=== PATIENT | female | born 1960 | race Caucasian/White ===

== ENCOUNTER 2017-09-14 13:07 | Day surgery (SDC) | payer BC ==
[2017-09-14] MEDS ORDERED: LIDOCAINE HCL 1% 20 ML VIAL ONE (13:26)
[2017-09-14 14:00] VITALS: BP 123/78; PULSE 71; RESP 20; TEMP 98.3; O2SAT 98
[2017-09-14 14:15] VITALS: BP 124/79; PULSE 73; RESP 20; O2SAT 99
--- NOTE | 2017-09-14 14:24 | RADRPT ---
EXAM DATE/TIME: 09/14/2017 13:24 [place] COMPARISON: No previous studies available for comparison. EXTERNAL COMPARISON: Radiology [facility], Ultrasound Thyroid, Aug 28 2017. INDICATIONS : Left thyroid nodule. MEDICAL HISTORY : Hypertension. SURGICAL HISTORY : Tubal ligation. Breast surgery. ENCOUNTER: Initial ACUITY: 3 weeks PAIN SCORE: 0/10 LOCATION: Left neck ORGAN: Left thyroid lobe SPECIMENS: Three fine needle aspirate(s) submitted for pathologic evaluation. DEVICE: 25 gauge needle Post procedure scanning reveals no hematoma or other complication. The possibility does exist that the tissue obtained will be non-diagnostic. If the sample is non-jaclyn gnostic a repeat biopsy or surgical biopsy may need to be performed. TECHNIQUE: 1. Ultrasound guidance for needle biopsy. 2. Needle biopsy. The risks, benefits and alternatives to the procedure were explained and verbal and written consent w as obtained. The site was prepped in sterile fashion. Full sterile technique was used, including ca p, mask, sterile gloves and gown and a large sterile sheet. Hand hygiene and 2% chlorhexidine and/or betadine/alcohol prep was utilized per protocol for cutaneous antisepsis. The skin and subcutaneous tissues were infiltrated with local anesthetic solution. Sterile gel and sterile probe cover were u tilized for ultrasound guidance. With the patient on the ultrasound table, images were obtained. A needle was advanced into the identified target and the number of specimens as above obtained and fontanez bmitted for pathologic evaluation. The patient tolerated the procedure well and left the ultrasound suite in stable condition. CONCLUSION: Uncomplicated ultrasound guided needle biopsy. Nilson Martin MD on September 14, 2017 at 14:21 Board Certified Radiologist. This report was verified electronically.
== END 2017-09-14 14:44 | disposition home or self-care (01) ==
LOC: HRAD 13:07 → HRIP 13:11 → HRAD 14:44
PROVIDERS: ATTEND Surgery Trauma Surgery
DX: E04.1 Nontoxic single thyroid nodule (principal); I10 Essential (primary) hypertension
CPT/HCPCS: 10022; 76942; 88172; 88173

== ENCOUNTER 2018-03-06 21:16 | Inpatient (IN) ==
[2018-03-06] MEDS ORDERED: ceFAZolin 2 GM Premix Inj 2 GM/50 ML PIGGYBACK IV.SIG ONE (22:18)
[2018-03-06] MEDS ORDERED: Diphtheria/Tetanus/Pertussis Vaccine Inj 0.5 ML Syringe IM ONE (22:19)
[2018-03-06 22:43] LABS: Baso # (Auto) 0.1 th/mm3 (0.0-0.2); Baso % (Auto) 0.5 % (0.0-2.0); Eos # (Auto) 0.2 th/mm3 (0.0-0.4); Eos % (Auto) 1.7 % (0.0-4.0); Hematocrit 39.7 % (35.0-46.0); Hemoglobin 13.3 gm/dL (11.6-15.3); Lymph # (Auto) 2.2 th/mm3 (1.0-4.8); Lymph % (Auto) 15.1 % (9.0-44.0); Mean Corpuscular HGB Conc 33.6 % (32.0-36.0); Mean Corpuscular Hemoglobin 29.3 pg (27.0-34.0); Mean Corpuscular Volume 87.2 fL (80.0-100.0); Mean Platelet Volume 10.3 fL (7.0-11.0); Mono # (Auto) 0.7 th/mm3 (0.0-0.9); Mono % (Auto) 4.8 % (0.0-8.0); Neut # (Auto) 11.5 th/mm3 (1.8-7.7); Neut % (Auto) 77.9 % (16.0-70.0); Platelet Count 203 th/mm3 (150-450); Red Blood Count 4.55 mil/mm3 (4.00-5.30); Red Cell Distribution Width 12.8 % (11.6-17.2); White Blood Count 14.8 th/mm3 (4.0-11.0)
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
[2018-03-06 22:53] LABS: Albumin 3.6 g/dL (3.4-5.0); Anion Gap 8 meq/L (5-15); Aspartate Aminotransferase 28 U/L (15-37); Blood Urea Nitrogen 13 mg/dL (7-18); Calcium 8.4 mg/dL (8.5-10.1); Carbon Dioxide 26.6 meq/L (21.0-32.0); Chloride 107 meq/L (98-107); Glomerular Filtration Rate 75 mL/min (>89); Glucose,Random 79 mg/dL (74-106); Potassium 3.2 meq/L (3.5-5.1); Sodium 142 meq/L (136-145)
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
[2018-03-06 22:54] LABS: Alanine Aminotransferase 29 U/L (10-53)
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
[2018-03-06 22:56] LABS: Alkaline Phosphatase 53 U/L (45-117); Total Protein 7.4 g/dL (6.4-8.2)
[2018-03-06] MEDS ORDERED: Morphine Inj 4 MG/ML Vial IV.PUSH ONE (23:06)
[2018-03-06] MEDS ORDERED: Temazepam 15 MG Capsule PO PRN (23:20)
[2018-03-06] MEDS ORDERED: Bisacodyl 10 MG Supp RECTAL PRN (23:20)
[2018-03-06] MEDS ORDERED: Sod Chloride 0.9% Inj 1,000 ML IV.CONT SCH (23:30)
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
[2018-03-06] MEDS ORDERED: Morphine Inj 4 MG/ML Vial IV.PUSH PRN (23:45)
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
[2018-03-07] MEDS ORDERED: Morphine Inj 4 MG/ML Vial IV.PUSH ONE (00:24)
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
[2018-03-07] MEDS ORDERED: Chlorhexidine Gluconate 2% 1 Pack (2 Cloths) TOPICAL SCH (04:15)
[2018-03-07] MEDS ORDERED: Sodium Chlor 0.9% Inj 500 ML IV.SIG SCH (05:00)
[2018-03-07 06:49] LABS: Baso % (Auto) 0.4 % (0.0-2.0); Eos % (Auto) 0.3 % (0.0-4.0); Hematocrit 37.2 % (35.0-46.0); Hemoglobin 12.6 gm/dL (11.6-15.3); Lymph # (Auto) 1.6 th/mm3 (1.0-4.8); Mean Corpuscular HGB Conc 33.9 % (32.0-36.0); Mean Corpuscular Hemoglobin 29.7 pg (27.0-34.0); Mean Corpuscular Volume 87.6 fL (80.0-100.0); Mean Platelet Volume 9.8 fL (7.0-11.0); Mono # (Auto) 0.9 th/mm3 (0.0-0.9); Mono % (Auto) 7.7 % (0.0-8.0); Neut # (Auto) 9.6 th/mm3 (1.8-7.7); Neut % (Auto) 78.6 % (16.0-70.0); Platelet Count 168 th/mm3 (150-450); Red Blood Count 4.25 mil/mm3 (4.00-5.30); Red Cell Distribution Width 12.6 % (11.6-17.2); White Blood Count 12.3 th/mm3 (4.0-11.0)
[2018-03-07 07:18] LABS: Albumin 3.4 g/dL (3.4-5.0); Anion Gap 8 meq/L (5-15); Aspartate Aminotransferase 34 U/L (15-37); Blood Urea Nitrogen 16 mg/dL (7-18); Carbon Dioxide 25.4 meq/L (21.0-32.0); Chloride 108 meq/L (98-107); Glomerular Filtration Rate 82 mL/min (>89); Glucose,Random 82 mg/dL (74-106); Potassium 3.5 meq/L (3.5-5.1); Sodium 141 meq/L (136-145)
[2018-03-07 07:22] LABS: Alanine Aminotransferase 26 U/L (10-53); Alkaline Phosphatase 51 U/L (45-117); Total Protein 6.9 g/dL (6.4-8.2)
[2018-03-07] MEDS: Senna/Docusate Sodium 8.6/50 MG Tablet PO SCH ×2 (08:39→20:36)
[2018-03-07] MEDS: Morphine Inj 4 MG/ML Vial IV.PUSH PRN ×3 (08:40→20:36)
[2018-03-07] MEDS ORDERED: ALPRAZolam 0.5 MG Tablet PO PRN (08:58)
[2018-03-07] MEDS ORDERED: Lisinopril 10 MG Tablet PO SCH (09:00)
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
[2018-03-07] MEDS ORDERED: Phenylephrine/NS 1000 MCG/10ML Syringe IV.PUSH ONE (12:00)
[2018-03-07] MEDS ORDERED: Succinylcholine Inj 100 MG/5 ML Syringe IV.PUSH ONE (12:00)
[2018-03-07] MEDS ORDERED: Lidocaine PF 1% Inj 5 ML Syringe INFILTRATN ONE (12:00)
[2018-03-07] MEDS ORDERED: Lidocaine 2% Inj 50 ML Vial ONE (14:19)
[2018-03-07] MEDS ORDERED: Bupivacaine PF 0.5% Inj 30 ML Vial ONE (14:19)
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
[2018-03-07] MEDS ORDERED: Lidocaine 1%/Epinephrine 1:100,000 Inj 20 ML Vial ONE (14:44)
[2018-03-07] MEDS ORDERED: Bupivacaine/Epinephrine 0.5% Inj 50 ML Vial ONE (14:44)
--- NOTE | 2018-03-07 14:47 | ECG ---
Date Performed: 03/07/2018 Time Performed: 05:44:02 PTAGE: 57 years EKG: Sinus rhythm Possible left atrial abnormality Septal T wave changes are nonspecific Since PREVIOUS TRACING , no significant change noted Borderline ECG PREVIOUS TRACING 8 16.29.04 DOCTOR: Huber Verdugo Interpretating Date/Time 03/07/2018 14:45:14
[2018-03-07] MEDS ORDERED: Artificial Tears Opth Drops 15 ML Bottle ONE (14:50)
[2018-03-07] MEDS ORDERED: fentaNYL Citrate Inj 100 MCG/2 ML Ampul ONE (17:05)
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
[2018-03-08] MEDS: Morphine Inj 4 MG/ML Vial IV.PUSH PRN ×2 (02:46→06:55)
[2018-03-08] MEDS ORDERED: Acetaminophen 325 MG Tablet PO PRN (08:10)
[2018-03-08] MEDS ORDERED: Naloxone Inj 0.4 MG/ML Vial IV.PUSH PRN (08:10)
[2018-03-08] MEDS: Senna/Docusate Sodium 8.6/50 MG Tablet PO SCH ×2 (10:22→20:18)
[2018-03-08] MEDS: Lisinopril 10 MG Tablet PO SCH (10:22)
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
--- NOTE | 2018-03-08 13:21 | P.DCO ---
- Physical Therapy Order: Evaluate and treat, Improve ambulation, Strength and gait training - Occupational Therapy Order: Evaluate and treat, Improve ADL, Gross motor coordination, Fine motor coordination - Certification I have seen patient Leeanna Mason on 03/08/18. My clinical findings support the need for the requested home health care services because: Deconditioned with increased weakness I certify that my clinical findings support that this patient is homebound because: Unsteady gait/balance, Need for psychosocial assistance
[2018-03-08] MEDS: Acetaminophen-HYDROcodone 325/7.5 Liq 15 ML UDC NG/OG PRN (15:28)
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
[2018-03-09] MEDS: Acetaminophen-HYDROcodone 325/7.5 Liq 15 ML UDC NG/OG PRN ×2 (03:00→09:38)
[2018-03-09] MEDS: Senna/Docusate Sodium 8.6/50 MG Tablet PO SCH (09:39)
[2018-03-09] MEDS: Lisinopril 10 MG Tablet PO SCH (09:39)
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
== END 2018-03-09 14:21 | disposition home or self-care (01) ==
LOC: NEPE 21:16 → NEDA 23:44 → N06 03-07 00:43
PROVIDERS: ADMIT Hospitalist; ATTEND Hospitalist
DX: M43.12 Spondylolisthesis, cervical region; M79.601 Pain in right arm; Z77.22 Contact with and (suspected) exposure to environmental tobacco smoke (acute) (chronic); I10 Essential (primary) hypertension; V93.83XA Other injury due to other accident on board other powered watercraft, initial encounter; S01.512A Laceration without foreign body of oral cavity, initial encounter; S01.21XA Laceration without foreign body of nose, initial encounter; M50.20 Other cervical disc displacement, unspecified cervical region; Z88.1 Allergy status to other antibiotic agents; S69.91XA Unspecified injury of right wrist, hand and finger(s), initial encounter; M47.892 Other spondylosis, cervical region; S02.2XXA Fracture of nasal bones, initial encounter for closed fracture; F41.9 Anxiety disorder, unspecified